=== PATIENT | female | born 1955 | race Caucasian/White ===

== ENCOUNTER 2016-07-13 10:39 | Outpatient (CLI) | payer OTHER | END 2016-07-13 10:40 | LOC: LAB 10:39 | PROVIDERS: ATTEND Family Medicine Sports Medicine | DX: R53.83 Other fatigue (principal); E55.9 Vitamin D deficiency, unspecified | CPT/HCPCS: 36415; 82306 ==

== ENCOUNTER 2019-04-13 14:33 | Outpatient (CLI) | payer OTHER ==
--- NOTE | 2019-04-13 18:11 | Diagnostic Imaging Report ---
PATIENT MR#: [id number] PATIENT PATIENT NAME: YOLIE VOGEL DATE OF : 1955 REFERRING PHYSICIAN: Alisson Henao EXAM DATE: 04/13/2019 ACCESSION NUMBER: [id number] EXAM DESCRIPTION: SHOULDER 2 VIEWS OR MORE CLINICAL HISTORY: PAIN IN RIGHT SHOULDER COMPARISON: No study for comparison is available at the time of interpretation. TECHNIQUE: DX right shoulder, 3 views Osseous structures: The osseous structures are normal with no evidence of fracture or dislocation. Th ere is no osseous lesion or periosteal reaction. Joint spaces: The bones are well aligned. Mild degenerative changes of the inferior glenohumeral join t. Mild AC joint arthrosis. Soft tissues: Chronic calcifications are noted in the left hilum and left upper lobe. IMPRESSION: Mild glenohumeral and AC joint arthrosis. Read by: Dr. Jovi Llanos Transcribed by: Jovi Llanos Transcribed Date: 04/13/2019 6:09:38 PM Electronically signed by: Dr. Jovi Llanos Date signed: 04/13/2019 6:10:10 PM
== END 2019-04-13 14:43 ==
LOC: RAD 14:33
PROVIDERS: ATTEND Family Medicine Sports Medicine
DX: M25.511 Pain in right shoulder (principal)
CPT/HCPCS: 73030